=== PATIENT | female | born 1945 | race African-American/Black ===

== ENCOUNTER → 2017-02-05 | Outpatient (CLI) | payer MEDICARE, MEDICAID ==
[2017-02-05 12:07] LABS: ABSOLUTE EOSINOPHILS # (AUTO) 0.3 10^3/uL (0.0-0.6); ABSOLUTE MONOCYTES (AUTO) 0.7 10^3/uL (0.1-1.4); ABSOLUTE NEUT (AUTO) 3.9 10^3/uL (1.7-8.2); BASOPHILS % (AUTO) 0.5 % (0-2); EOSINOPHILS % (AUTO) 4.2 % (0-6); HEMATOCRIT 29.1 % (36.0-47.0); HEMOGLOBIN 9.7 g/dL (12.0-15.5); LYMPHOCYTES % (AUTO) 37.7 % (13-45); MEAN CORPUSCULAR HEMOGLOBIN 31.6 pg (27.0-33.4); MEAN CORPUSCULAR HGB CONC 33.4 g/dL (32.0-36.0); MEAN CORPUSCULAR VOLUME 95 fl (80-97); MONOCYTES % (AUTO) 8.8 % (3-13); RED BLOOD COUNT 3.08 10^6/uL (3.72-5.28); RED CELL DISTRIBUTION WIDTH 14.5 % (11.5-14.0); SEGMENTED NEUTROPHILS % (AUTO) 48.8 % (42-78)
== END ==
LOC: LAB 11:51
PROVIDERS: ATTEND Internal Medicine Nephrology
DX: D63.1 Anemia in chronic kidney disease (principal)
CPT/HCPCS: 36415; 85025

== ENCOUNTER 2017-05-21 06:03 | Day surgery (SDC) | payer MEDICARE, MEDICAID ==
[2017-05-16 10:21] LABS: HEMATOCRIT 31.1 % (36.0-47.0); HEMOGLOBIN 9.9 g/dL (12.0-15.5); HGB HCT DIFFERENCE -1.4; MEAN CORPUSCULAR HEMOGLOBIN 29.2 pg (27.0-33.4); MEAN CORPUSCULAR VOLUME 91 fl (80-97); RED CELL DISTRIBUTION WIDTH 15.2 % (11.5-14.0); WHITE BLOOD COUNT 5.8 10^3/uL (4.0-10.5)
[2017-05-16 10:44] LABS: BLOOD UREA NITROGEN 73 mg/dL (7-20); CALCIUM 10.6 mg/dL (8.4-10.2); CHLORIDE 114 mmol/L (98-107); CREATININE RESULT 4.21 mg/dL (0.52-1.25); GLUCOSE 177 mg/dL (75-110); SODIUM 141.9 mmol/L (137-145)
[2017-05-16 10:49] LABS: ANION GAP 19 (5-19)
[2017-05-16 11:09] LABS: POTASSIUM 6.2 mmol/L (3.6-5.0)
[2017-05-16 11:10] LABS: CARBON DIOXIDE 9 mmol/L (22-30)
--- NOTE | 2017-05-16 22:16 | EKG REPORT ---
SEVERITY:- ABNORMAL ECG - SINUS RHYTHM LVH WITH SECONDARY REPOLARIZATION ABNORMALITY REPOL ABNRM, PROBABLE ISCHEMIA, ANT-LAT LEADS : Confirmed by: Luc Tovar 16-May-2017 22:16:21
[~2017-05-21 06:03] MED LIST: LIDOCAINE 0.5% INJ-PF (5 MG/ML) 50 ML SDV SUBCUT PRN; NORMAL SALINE 1000 ML (RENAL PATIENTS) IV PRN
[2017-05-21] MEDS ORDERED: LIDOCAINE 1% INJ-PF (10 MG/ML) 30 ML SDV ONE (06:52)
[2017-05-21] MEDS ORDERED: HEPARIN SOD (PORCINE) 1,000 UNIT/ML 10 ML VIAL ONE (06:52)
[2017-05-21] MEDS ORDERED: LIDOCAINE 0.5% INJ-PF (5 MG/ML) 50 ML SDV ONE (06:53)
[2017-05-21] MEDS ORDERED: BUPIVACAINE HCL 0.25 % INJ/PF (2.5 MG/1 ML) 30 ML VIAL ONE (06:53)
[2017-05-21] MEDS ORDERED: BACITRACIN INJ 50,000 UNIT VIAL ONE (06:53)
[2017-05-21] MEDS ORDERED: ALBUTEROL SULFATE 0.083% NEB 2.5 MG/3 ML AMPUL NEB ONE (06:55)
[2017-05-21 07:04] LABS: POTASSIUM 3.6 mmol/L (3.6-5.0)
[2017-05-21] MEDS ORDERED: NITROGLYCERIN/D5W 0 MG/0 ML RTUINJ IV ONE (07:35)
[2017-05-21] MEDS ORDERED: MIDAZOLAM 2 MG/2 ML INJ ONE (07:43)
[2017-05-21] MEDS ORDERED: KETAMINE HCL INJ 500 MG/10 ML VIAL ONE (07:43)
[2017-05-21] MEDS ORDERED: PROPOFOL INJ 200 MG/20 ML VIAL IV ONE (07:44)
[2017-05-21 07:54] LABS: BLOOD UREA NITROGEN 33 mg/dL (7-20); CALCIUM 9.7 mg/dL (8.4-10.2); CARBON DIOXIDE 17 mmol/L (22-30); CHLORIDE 113 mmol/L (98-107); CREATININE RESULT 3.09 mg/dL (0.52-1.25); SODIUM 145.1 mmol/L (137-145)
[2017-05-21] MEDS ORDERED: CEFAZOLIN 1 GM/D5W RTU 1 GM/50 ML RTUPB IV ONE (07:58)
[2017-05-21] MEDS ORDERED: OXYCODONE-ACETAMINOPHEN 5-325 MG TABLET PO PRN ×3 (08:57→09:55)
[2017-05-21] MEDS ORDERED: MORPHINE SULFATE 10 MG/ML INJ IV PRN (08:57)
[2017-05-21] MEDS ORDERED: PROMETHAZINE HCL INJ 25 MG/1 ML VIAL IV PRN ×2 (08:57)
[2017-05-21] MEDS ORDERED: FENTANYL CITRATE INJ/PF 100 MCG/2 ML AMPUL IV PRN ×3 (08:57)
[2017-05-21] MEDS ORDERED: DIPHENHYDRAMINE HCL 50 MG/ML VIAL IV PRN (08:57)
[2017-05-21] MEDS ORDERED: MEPERIDINE HCL/PF INJ 25 MG/1 ML DISP.SYRIN IV PRN (08:57)
--- NOTE | 2017-05-21 09:56 | PDOC DISCHARGE SUMMARY ---
Discharge Summary (SDC) - Discharge Final Diagnosis: #1 end-stage renal disease. 2. Diabetes mellitus type 2. 3. History of stroke. 4. Coronary artery disease. 5. Carotid artery stenosis. 6. Hypertension. Date of Surgery: 05/21/17 Discharge Date: 05/21/17 Condition: Fair Treatment or Instructions: Discharge home [after recovery per ASU criteria]. Diet , [renal],as tolerated, when fully awake advance as tolerated. Activities within moderation encouraged. Follow up in my office by appointment in about [1 week]. Call for appointment. Leave wounds [covered], [keep clean and dry, until office visit in 1 week]. Hold of on school/work [until evaluation in office]. May shower [in 48 hrs], [try to keep operated area as dry as possible]. Prescriptions: Oxycodone HCl/Acetaminophen [Percocet 5-325 mg Tablet] 1 tab PO ASDIR PRN #15 tab PRN Reason: Discharge Diet: Other (Comments) - Renal diabetic Respiratory Treatments at Home: Deep Breathing/Coughing Discharge Activity: Activity As Tolerated Report the Following to Your Physician Immediately: Unusual Bleeding
--- NOTE | 2017-05-21 10:18 | Operative Report ---
Operative Report DATE OF SURGERY: 05/21/17 PREOPERATIVE DIAGNOSIS: #1 end-stage renal disease. 2. Diabetes mellitus type 2. 3. History of stroke. 4. Coronary artery disease. 5. Carotid artery stenosis. 6. Hypertension. POSTOPERATIVE DIAGNOSIS: #1 end-stage renal disease. Insertion of first stage left transposed brachial vein fistula. 2. Diabetes mellitus type 2. 3. History of stroke. 4. Coronary artery disease. 5. Carotid artery stenosis. 6. Hypertension. OPERATION: Insertion of first stage left brachial vein transposition fistula. SURGEON: JENNIFER LUTHER CASINO SURVEILLANCE OFFICER: PETER LEMONS ANESTHESIA: LMAC TISSUE REMOVED OR ALTERED: Not applicable. COMPLICATIONS: None ESTIMATED BLOOD LOSS: 5 mL. INTRAOPERATIVE FINDINGS: Very small basilic vein, small veins in general. Cephalic almost nonexistent. The brachial vein by far is the best and is up to 4.1 mm in diameter. It did except a 3.5 mm coronary dilator. The brachial artery is supple and only somewhat thick-walled. Easily 4 mm in diameter. The fistula functioning nicely with a good thrill and bruit. Appropriate Doppler signals in the afferent, efferent artery and fistula post procedure. PROCEDURE: Operative Report PROCEDURE: After reviewing the procedure with the patient, [she] was taken to the operating room. The patient was sedated and the [left upper extremity] prepared with chlorhexidine and draped out with sterile linen. After the "" universal timeout", in which it was verified that the patient [received IV antibiotics] the procedure commenced. The sterilely sheathed ultrasound probe was used to evaluate the left upper venous and arterial systems, pertinent to the previously done vein mapping. Local anesthesia was infiltrated and a longitudinal incision made over the lower arm near the antecubital fossa. Dissection proceeded through the subcutaneous tissues down to the brachial vessels. The vein was dissected out proximally and distally for about 4 cm. Likewise major branches. The brachial artery dissected out for a distance of about 1.5 cm. Rubber loops were placed on either end. The patient was given 2500 units of heparin intravenously. Coronary dilators were accepted [up to 4 mm]. The artery was controlled proximally and distally with rubber loops. An arteriotomy approximately [1.5 cm] in length was made, the artery was irrigated proximally and distally with heparinized solution. The transected vein was now spatulated , it was then anastomosed end to end to side into the brachial artery. This was done using a continuous suture of 6-0 Prolene. Controls of the fistula were now released and it was analyzed using a Doppler probe. Hemostasis was secured once optimal function was assuredtion and closed. Closure was done using interrupted 3-0 PDS for the subcutaneous tissues. The skin was closed using a continuous subcutaneous suture of 4-0 Monocryl which was reinforced with Steri-Strips over benzoin. The procedure was concluded by applying a dressing over the surgical site. DICTATING PHYSICIAN: JENNIFER JIMENEZ M.D.
[2017-05-21 13:02] VITALS: BP 180/77
== END 2017-05-21 11:35 | disposition home or self-care (01) ==
LOC: OROUT 06:03
PROVIDERS: ATTEND Surgery
PROC: 05SC0ZZ Reposition Left Basilic Vein, Open Approach (ICD-10-PCS; principal; 2017-05-21 08:00)
DX: I13.2 Hypertensive heart and chronic kidney disease with heart failure and with stage 5 chronic kidney disease, or end stage renal disease (principal); I50.9 Heart failure, unspecified; N18.6 End stage renal disease; E11.22 Type 2 diabetes mellitus with diabetic chronic kidney disease; I25.10 Atherosclerotic heart disease of native coronary artery without angina pectoris; E78.00 Pure hypercholesterolemia, unspecified; I65.29 Occlusion and stenosis of unspecified carotid artery; D64.9 Anemia, unspecified; E11.40 Type 2 diabetes mellitus with diabetic neuropathy, unspecified; G47.30 Sleep apnea, unspecified; F17.210 Nicotine dependence, cigarettes, uncomplicated; K21.9 Gastro-esophageal reflux disease without esophagitis; G47.33 Obstructive sleep apnea (adult) (pediatric); Z79.4 Long term (current) use of insulin; Z79.82 Long term (current) use of aspirin; Z79.899 Other long term (current) drug therapy; I69.851 Hemiplegia and hemiparesis following other cerebrovascular disease affecting right dominant side; Z87.01 Personal history of pneumonia (recurrent)
CPT/HCPCS: 93005; 36415 ×2; 82962; 84520; 82310; 82435; 82374; 82565; 82947; 84132; 84295; 85027; 80048; 93010; 94640; 36819; J2250; J3490 ×4; J0690; J1644; J2704; A9270; 1844

== ENCOUNTER 2017-06-25 09:15 | Day surgery (SDC) | payer MEDICARE, MEDICAID ==
[2017-06-25] MEDS ORDERED: LIDOCAINE 0.5% INJ-PF (5 MG/ML) 50 ML SDV ONE (09:51)
[2017-06-25] MEDS ORDERED: MIDAZOLAM 2 MG/2 ML INJ ONE (09:51)
[2017-06-25] MEDS ORDERED: FENTANYL CITRATE INJ/PF 100 MCG/2 ML AMPUL ONE (09:51)
[2017-06-25] MEDS ORDERED: BACITRACIN INJ 50,000 UNIT VIAL ONE (09:51)
[2017-06-25 10:01] LABS: HEMATOCRIT 27.4 % (36.0-47.0); HEMOGLOBIN 9.1 g/dL (12.0-15.5); HGB HCT DIFFERENCE -0.1; MEAN CORPUSCULAR HGB CONC 33.3 g/dL (32.0-36.0); MEAN CORPUSCULAR VOLUME 93 fl (80-97); RED BLOOD COUNT 2.94 10^6/uL (3.72-5.28); RED CELL DISTRIBUTION WIDTH 16.6 % (11.5-14.0); WHITE BLOOD COUNT 8.2 10^3/uL (4.0-10.5)
[2017-06-25] MEDS ORDERED: OXYCODONE-ACETAMINOPHEN 5-325 MG TABLET ONE (10:04)
[2017-06-25] MEDS ORDERED: DIAZEPAM 5 MG TABLET ONE (10:05)
[2017-06-25 10:22] LABS: BLOOD UREA NITROGEN 79 mg/dL (7-20); CALCIUM 9.8 mg/dL (8.4-10.2); CHLORIDE 110 mmol/L (98-107); CREATININE RESULT 5.89 mg/dL (0.52-1.25); GLUCOSE 175 mg/dL (75-110); POTASSIUM 5.2 mmol/L (3.6-5.0)
[2017-06-25 10:32] LABS: CARBON DIOXIDE 13 mmol/L (22-30); SODIUM 142.5 mmol/L (137-145)
[2017-06-25 10:33] LABS: ANION GAP 20 (5-19)
[2017-06-25] MEDS ORDERED: CEFAZOLIN 1 GM/D5W RTU 1 GM/50 ML RTUPB IV ONE (10:57)
--- NOTE | 2017-06-25 11:49 | PDOC DISCHARGE SUMMARY ---
Discharge Summary (SDC) - Discharge Final Diagnosis: ESRD on hemodialysis Date of Surgery: 06/25/17 Discharge Date: 06/25/17 Condition: Good Treatment or Instructions: Discharge home [after recovery per ASU criteria]. Diet , [renal],as tolerated, when fully awake advance as tolerated. Activities within moderation encouraged. Follow up in my office by appointment in about [1 week]. Call for appointment. Leave wounds [covered], [keep clean and dry, until hemodialysis]. Hold of on school/work [until evaluation in office]. Medications per med. May shower [in 48 hrs], [try to keep operated area as dry as possible]. Discharge Diet: Other (Comments) - Renal Respiratory Treatments at Home: Deep Breathing/Coughing Discharge Activity: Activity As Tolerated, Other - Do not lie flat for 48 hours he just elevated semi-seated position.
--- NOTE | 2017-06-25 11:53 | Operative Report ---
Operative Report DATE OF SURGERY: 06/25/17 PREOPERATIVE DIAGNOSIS: ESRD on hemodialysis POSTOPERATIVE DIAGNOSIS: ESRD on hemodialysis OPERATION: 1. Ultrasound evaluation right internal jugular vein. 2. PermCath insertion via real-time ultrasound access in the right internal jugular vein. 3. Angiogram interpretation. SURGEON: JENNIFER LUTHER A OPERATOR: None ANESTHESIA: Moderate Sedation TISSUE REMOVED OR ALTERED: Not applicable. COMPLICATIONS: None ESTIMATED BLOOD LOSS: 2 mL. INTRAOPERATIVE FINDINGS: Of a satisfactory right internal jugular vein, estimated to be 1.21 m in diameter. Adequate support of PermCath catheter. Easy egress of blood and ingress of heparinized solution through both ports. Satisfactory flow of contrast through the cath and into the right atrium. The tip of the catheter in the upper third of the atrial pool. PROCEDURE: After obtaining informed consent, the patient was taken to the operating room and positioned supine. The [right neck] and chest were prepared with chlorhexidine and draped out with sterile linen. After the " universal timeout ", in which it was verified that the patient continued to receive antibiotic, the procedure commenced. A steriley sheathed ultrasound probe was used to evaluate the [right internal jugular] vein. Local anesthesia was infiltrated adjacent to the probe. Access into the [right internal jugular] vein was obtained using a micropuncture needle, followed by micropuncture wire and then a micropuncture catheter. This was followed by introduction of a 0.035 guidewire the tip of which was placed down into the inferior vena cava . A 23 cm long perm catheter] was now positioned over the chest and an exit site marked and locally anesthetized ,the catheter was placed between the 2 incisions. Proximally, the catheter was now positioned using a peel-away sheath, after dilation. Easy ingress of heparinized solution and egress of blood obtained through both ports. A completion angiogram was done by injecting contrast. The findings were as dictated. The neck incision was now closed using interrupted 3-0 PDS to the subcutaneous tissues, the catheter was anchored at the exit site using 3-0 PDS. A Biopatch device was now placed adjacent to the catheter. Dressings were applied and the procedure concluded. Exposure time: [1.1 minutes]. Exposure: 4.54 mcg per centimeters squared. Contrast amount: [5 mL] of [id number] low osmolality. Copies of the dictated operative report for Dr. Jennifer Douglas MD.concluded. Copies of the dictated operative report for Dr. Jennifer Douglas MD.
[2017-06-25 14:51] VITALS: BP 145/56
--- NOTE | 2017-06-25 16:43 | RADIOLOGY REPORT (SQ) ---
EXAM DESCRIPTION: TUNNELED CENTRAL LINE; GUIDANCE ULTRASOUND; GUIDANCE FLUOROSCOPIC COMPLETED DATE/TIME: 06/25/2017 3:14 pm REASON FOR STUDY: N18.6 N18.6 END STAGE RENAL DISEASE COMPARISON: None. FLUOROSCOPY TIME: 1.1 minute. 4 images saved to PACS. TECHNIQUE: Intra-operative images acquired during surgical procedure to evaluate progress. NUMBER OF IMAGES: 4 images. LIMITATIONS: None. FINDINGS: Images of the chest acquired during catheter placement. IMPRESSION: IMAGE(S) OBTAINED DURING PROCEDURE. COMMENT: Quality ID 145: Final reports for procedures using fluoroscopy that document radiation exp osure indices, or exposure time and number of fluorographic images (if radiation exposure indices are not available) Please consult full operative report of the attending physician for description of the procedure. TECHNICAL DOCUMENTATION: JOB ID: [id number] [employer]- All Rights Reserved
--- NOTE | 2017-06-25 16:43 | RADIOLOGY REPORT (SQ) ---
EXAM DESCRIPTION: TUNNELED CENTRAL LINE; GUIDANCE ULTRASOUND; GUIDANCE FLUOROSCOPIC COMPLETED DATE/TIME: 06/25/2017 3:14 pm REASON FOR STUDY: N18.6 N18.6 END STAGE RENAL DISEASE COMPARISON: None. FLUOROSCOPY TIME: 1.1 minute. 4 images saved to PACS. TECHNIQUE: Intra-operative images acquired during surgical procedure to evaluate progress. NUMBER OF IMAGES: 4 images. LIMITATIONS: None. FINDINGS: Images of the chest acquired during catheter placement. IMPRESSION: IMAGE(S) OBTAINED DURING PROCEDURE. COMMENT: Quality ID 145: Final reports for procedures using fluoroscopy that document radiation exp osure indices, or exposure time and number of fluorographic images (if radiation exposure indices are not available) Please consult full operative report of the attending physician for description of the procedure. TECHNICAL DOCUMENTATION: JOB ID: [id number] [employer]- All Rights Reserved
--- NOTE | 2017-06-25 16:43 | RADIOLOGY REPORT (SQ) ---
EXAM DESCRIPTION: TUNNELED CENTRAL LINE; GUIDANCE ULTRASOUND; GUIDANCE FLUOROSCOPIC COMPLETED DATE/TIME: 06/25/2017 3:14 pm REASON FOR STUDY: N18.6 N18.6 END STAGE RENAL DISEASE COMPARISON: None. FLUOROSCOPY TIME: 1.1 minute. 4 images saved to PACS. TECHNIQUE: Intra-operative images acquired during surgical procedure to evaluate progress. NUMBER OF IMAGES: 4 images. LIMITATIONS: None. FINDINGS: Images of the chest acquired during catheter placement. IMPRESSION: IMAGE(S) OBTAINED DURING PROCEDURE. COMMENT: Quality ID 145: Final reports for procedures using fluoroscopy that document radiation exp osure indices, or exposure time and number of fluorographic images (if radiation exposure indices are not available) Please consult full operative report of the attending physician for description of the procedure. TECHNICAL DOCUMENTATION: JOB ID: [id number] [employer]- All Rights Reserved
== END 2017-06-25 13:03 | disposition home or self-care (01) ==
LOC: SC 09:15
PROVIDERS: ATTEND Surgery
PROC: 05HM33Z Insertion of Infusion Device into Right Internal Jugular Vein, Percutaneous Approach (ICD-10-PCS; principal; 2017-06-25)
DX: G47.30 Sleep apnea, unspecified (principal); I13.2 Hypertensive heart and chronic kidney disease with heart failure and with stage 5 chronic kidney disease, or end stage renal disease; I50.9 Heart failure, unspecified; N18.6 End stage renal disease; G62.9 Polyneuropathy, unspecified; E08.22 Diabetes mellitus due to underlying condition with diabetic chronic kidney disease; Z99.2 Dependence on renal dialysis; Z87.891 Personal history of nicotine dependence; M19.90 Unspecified osteoarthritis, unspecified site; F41.9 Anxiety disorder, unspecified; K21.9 Gastro-esophageal reflux disease without esophagitis; D64.9 Anemia, unspecified; I25.10 Atherosclerotic heart disease of native coronary artery without angina pectoris; E78.00 Pure hypercholesterolemia, unspecified; Z86.73 Personal history of transient ischemic attack (TIA), and cerebral infarction without residual deficits; Z79.4 Long term (current) use of insulin; Z79.82 Long term (current) use of aspirin; Z79.899 Other long term (current) drug therapy
CPT/HCPCS: 36415; 85027; 80048; 36558; 76937; 77001; C1752 ×2; Q9967; J2250; J3490 ×2; J0690; A9270 ×2; J3010; J1644

== ENCOUNTER 2017-07-09 05:34 | Day surgery (SDC) | payer MEDICARE, MEDICAID ==
[~2017-07-09 05:34] MED LIST changes: +CEFAZOLIN 1 GM/D5W RTU 1 GM/50 ML RTUPB IV PRN; -LIDOCAINE 0.5% INJ-PF (5 MG/ML) 50 ML SDV SUBCUT PRN; -NORMAL SALINE 1000 ML (RENAL PATIENTS) IV PRN
[2017-07-09] MEDS ORDERED: HEPARIN SODIUM,PORCINE/NS/PF 0 UNIT/0 ML RTUINJ IV ONE (06:32)
[2017-07-09] MEDS ORDERED: BUPIVACAINE HCL 0.25 % INJ/PF (2.5 MG/1 ML) 30 ML VIAL ONE (06:32)
[2017-07-09] MEDS ORDERED: LIDOCAINE 0.5% INJ-PF (5 MG/ML) 50 ML SDV ONE (06:32)
[2017-07-09] MEDS ORDERED: BACITRACIN INJ 50,000 UNIT VIAL ONE (06:33)
[2017-07-09] MEDS ORDERED: LIDOCAINE 1% INJ-PF (10 MG/ML) 30 ML SDV ONE (06:34)
[2017-07-09] MEDS ORDERED: HEPARIN SOD (PORCINE) 1,000 UNIT/ML 10 ML VIAL ONE (06:34)
[2017-07-09] MEDS ORDERED: MIDAZOLAM 2 MG/2 ML INJ ONE (06:44)
[2017-07-09] MEDS ORDERED: FENTANYL CITRATE INJ/PF 100 MCG/2 ML AMPUL ONE ×2 (06:44→10:55)
[2017-07-09] MEDS ORDERED: EPHEDRINE SULFATE INJ 50 MG/1 ML AMPULE ONE (06:45)
[2017-07-09] MEDS ORDERED: PROPOFOL INJ 200 MG/20 ML VIAL IV ONE (06:45)
[2017-07-09] MEDS ORDERED: KETAMINE HCL INJ 500 MG/10 ML VIAL ONE (06:46)
[2017-07-09 07:05] LABS: HEMATOCRIT 25.2 % (36.0-47.0); HEMOGLOBIN 8.2 g/dL (12.0-15.5); HGB HCT DIFFERENCE -0.6; MEAN CORPUSCULAR HEMOGLOBIN 30.7 pg (27.0-33.4); MEAN CORPUSCULAR HGB CONC 32.5 g/dL (32.0-36.0); MEAN CORPUSCULAR VOLUME 94 fl (80-97); RED BLOOD COUNT 2.67 10^6/uL (3.72-5.28); RED CELL DISTRIBUTION WIDTH 17.9 % (11.5-14.0); WHITE BLOOD COUNT 7.6 10^3/uL (4.0-10.5)
[2017-07-09 07:36] LABS: ANION GAP 13 (5-19); BLOOD UREA NITROGEN 19 mg/dL (7-20); CALCIUM 9.3 mg/dL (8.4-10.2); CARBON DIOXIDE 29 mmol/L (22-30); CHLORIDE 97 mmol/L (98-107); CREATININE RESULT 3.11 mg/dL (0.52-1.25); GLUCOSE 196 mg/dL (75-110); POTASSIUM 3.5 mmol/L (3.6-5.0); SODIUM 138.7 mmol/L (137-145)
--- NOTE | 2017-07-09 08:31 | EKG REPORT ---
SEVERITY:- ABNORMAL ECG - SINUS RHYTHM PROBABLE LEFT ATRIAL ABNORMALITY LVH WITH SECONDARY REPOLARIZATION ABNORMALITY ANTERIOR Q WAVES, POSSIBLY DUE TO LVH BORDERLINE PROLONGED QT INTERVAL : Confirmed by: Luc Tovar 09-Jul-2017 08:30:50
[2017-07-09] MEDS ORDERED: FENTANYL CITRATE INJ/PF 100 MCG/2 ML AMPUL IV PRN ×3 (08:43→10:40)
--- NOTE | 2017-07-09 10:41 | PDOC DISCHARGE SUMMARY ---
Discharge Summary (SDC) - Discharge Final Diagnosis: #[address] 2. End-stage renal disease on hemodialysis. 3. Diabetes mellitus type 2. 4. History of stroke. 5. Hypertension. Date of Surgery: 07/09/17 Discharge Date: 07/09/17 Condition: Good Treatment or Instructions: Discharge patient after meeting ASU criteria. Resume meds per medication reconciliation form and prescription for Percocet. Follow-up in office by appointment in about 1 week. Drain to be managed as per protocol, removed on office visit. The patient may shower starting in 48 hours. The fresh surgical site to be kept clean and dry as much as possible. Referrals: YOLIE KOROMA MD [Primary Care Provider] - Discharge Diet: Tube Feeding (Comments), Other (Comments) - Renal Respiratory Treatments at Home: Deep Breathing/Coughing Discharge Activity: Activity As Tolerated Report the Following to Your Physician Immediately: Shortness of Breath, Unusual Bleeding
--- NOTE | 2017-07-09 10:53 | Operative Report ---
Operative Report DATE OF SURGERY: 07/09/17 PREOPERATIVE DIAGNOSIS: 1. PermCath in place. 2. End-stage renal disease on hemodialysis. 3. History of stroke. 4. Diabetes mellitus type 2. 5. Hypertension. POSTOPERATIVE DIAGNOSIS: 1. PermCath in place. Post second stage left brachial vein transposition. 2. End-stage renal disease on hemodialysis. 3. History of stroke. 4. Diabetes mellitus type 2. 5. Hypertension. OPERATION: Insertion of second stage brachial vein transposition, left arm. SURGEON: JENNIFER LUTHER LOAN INSPECTOR: PETER STOVER ANESTHESIA: LMAC TISSUE REMOVED OR ALTERED: Not applicable. COMPLICATIONS: None ESTIMATED BLOOD LOSS: 50 mL. INTRAOPERATIVE FINDINGS: Of a relatively small brachial vein fistula otherwise with adequate bruit. Estimated to be about 5 mm. Need for secondary dilatation may exist. The vein had an unusual amount of branches and reentry points which were dealt with individually. These caused the procedure to be somewhat longer than usual. An approximately 15 cm segment should be available for dialysis eventually. A number of small superficial nerves were noted and mostly preserved. PROCEDURE: Operative Report PROCEDURE: After reviewing the procedure with the patient, and her family, she was taken to the operating room. The patient was sedated and the her prepared with chlorhexidine and draped out with sterile linen. After the "" universal timeout", in which it was verified that the patient [received IV antibiotics] the procedure commenced. The sterilely sheathed ultrasound probe was used to evaluate the size and topographic location of the existing brachial brachial vein fistula. This was transcribed topographical using a marking pen. Local anesthesia was infiltrated and a longitudinal incision started just above the elbow and dissection proceeded down to the fistula. Sequential infiltration of local anesthesia, incision and dissection of the vein proceeded up to the axillary fold. The basilic vein was now dissected away from its branches which were either clipped and/or ligated and divided. In this way the brachial vein was freed up for its entire visible length. Its length was now measured with a dry umbilical tape which was used to transpose a tunnel onto the skin anteriorly and laterally. With this marked in ink, local anesthesia was infiltrated in the skin and subcutaneous tissue of the tunnel. A Cannon tunneler was now used to dissect a tunnel in the immediate subcutaneous plane in the area of fistula transposition. Several 3-0 PDS sutures were now placed in the subcutaneous tissues and placed on clamps. These were used for traction laterally. The subcutaneous tissues were now divided down to the tunneler. Just beneath the skin and superficial to the fascia. The tunneler was now removed. The vein was now placed within the tunnel which was reconstituted with interrupted sutures of 3-0 PDS. Great care was taken to avoid compressing the fistula. A 15 [place] drain was now inserted through an inferiorly placed incision after obtaining local anesthesia. The drain was tailored to the lower one third of the wound. It was kept away from the vein, the wound was now closed using interrupted 3-0 PDS in the subcutaneous tissues. The skin was closed with a continuous subcutaneous suture of 4-0 Monocryl. Steri-Strips were applied over benzoin and then Telfa and then a Kerlix wrap. The procedure was concluded. Copies dictated operative report to Dr. Jennifer Douglas MD . DICTATING PHYSICIAN: JENNIFER DOUGLAS M.D.
[2017-07-09] MEDS ORDERED: OXYCODONE-ACETAMINOPHEN 5-325 MG TABLET ONE (11:36)
[2017-07-09] MEDS ORDERED: LIDOCAINE 2% INJ-PF (20 MG/ML) 10 ML AMPUL ONE (12:22)
[2017-07-09] MEDS ORDERED: ONDANSETRON HCL INJ/PF 4 MG/2 ML SDV ONE (12:22)
[2017-07-09 13:51] VITALS: BP 131/54
== END 2017-07-09 12:25 | disposition home or self-care (01) ==
LOC: OROUT 05:34
PROVIDERS: ATTEND Surgery
PROC: 05SA0ZZ Reposition Left Brachial Vein, Open Approach (ICD-10-PCS; principal; 2017-07-09 07:30)
DX: N18.6 End stage renal disease (principal); Z99.2 Dependence on renal dialysis; Z79.899 Other long term (current) drug therapy; Z79.4 Long term (current) use of insulin; Z79.82 Long term (current) use of aspirin; M19.90 Unspecified osteoarthritis, unspecified site; F41.9 Anxiety disorder, unspecified; G47.30 Sleep apnea, unspecified; D64.9 Anemia, unspecified; I65.29 Occlusion and stenosis of unspecified carotid artery; I25.10 Atherosclerotic heart disease of native coronary artery without angina pectoris; Z86.73 Personal history of transient ischemic attack (TIA), and cerebral infarction without residual deficits; E11.40 Type 2 diabetes mellitus with diabetic neuropathy, unspecified; E78.00 Pure hypercholesterolemia, unspecified; Z87.891 Personal history of nicotine dependence; I13.2 Hypertensive heart and chronic kidney disease with heart failure and with stage 5 chronic kidney disease, or end stage renal disease; I50.9 Heart failure, unspecified; E11.22 Type 2 diabetes mellitus with diabetic chronic kidney disease; J45.909 Unspecified asthma, uncomplicated; R01.1 Cardiac murmur, unspecified
CPT/HCPCS: 36415; 82962; 85027; 80048; 93005; 93010; 36821; J2250; J3490 ×5; J0690; J3010; J1644; A9270; J2405; J2704; 1844

== ENCOUNTER 2017-09-16 07:46 | Day surgery (SDC) | payer MEDICARE, MEDICAID ==
[~2017-09-16 07:46] MED LIST changes: -CEFAZOLIN 1 GM/D5W RTU 1 GM/50 ML RTUPB IV PRN; +FENTANYL CITRATE INJ/PF 100 MCG/2 ML AMPUL ONE; +HEPARIN SOD (PORCINE) 5,000 UNIT/ML 1 ML SYRINGE ONE; +LIDOCAINE 0.5% INJ-PF (5 MG/ML) 50 ML SDV ONE; +MIDAZOLAM 2 MG/2 ML INJ ONE
[2017-09-16 08:03] LABS: HEMATOCRIT 42.6 % (36.0-47.0); HGB HCT DIFFERENCE -0.6; MEAN CORPUSCULAR HEMOGLOBIN 29.8 pg (27.0-33.4); MEAN CORPUSCULAR HGB CONC 32.9 g/dL (32.0-36.0); MEAN CORPUSCULAR VOLUME 91 fl (80-97); RED BLOOD COUNT 4.71 10^6/uL (3.72-5.28); RED CELL DISTRIBUTION WIDTH 16.5 % (11.5-14.0); WHITE BLOOD COUNT 7.1 10^3/uL (4.0-10.5)
[2017-09-16] MEDS ORDERED: OXYCODONE-ACETAMINOPHEN 5-325 MG TABLET ONE ×2 (08:20→10:25)
[2017-09-16] MEDS ORDERED: DIAZEPAM 5 MG TABLET ONE (08:20)
[2017-09-16 08:29] LABS: ANION GAP 17 (5-19); BLOOD UREA NITROGEN 47 mg/dL (7-20); CALCIUM 9.9 mg/dL (8.4-10.2); CARBON DIOXIDE 22 mmol/L (22-30); CHLORIDE 106 mmol/L (98-107); CREATININE RESULT 4.07 mg/dL (0.52-1.25); GLUCOSE 326 mg/dL (75-110); POTASSIUM 3.9 mmol/L (3.6-5.0); SODIUM 145.3 mmol/L (137-145)
--- NOTE | 2017-09-16 08:40 | PDOC H&P ---
General Chief Complaint: The patient is being dialyzed with a right-sided permacatheter. She has a small second stage fistula. This requires maturation. - Diagnosis (3) Diabetes mellitus type 2 in nonobese Is this a Current Diagnosis?: Yes (5) History of stroke Is this a Current Diagnosis?: Yes (6) Hypertension Is this a Current Diagnosis?: Yes - Current Medications/Allergies Home Medications: Amlodipine Besylate 10 mg PO DAILY 05/21/17 Benazepril HCl [Lotensin] 40 mg PO DAILY 05/21/17 Betamet Diprop/Prop Gly [Betamethasone Dp Aug 0.05% Cream] 1 gm TOP PRN PRN Furosemide 60 mg PO QAM 05/21/17 Gabapentin 300 mg PO QHS 05/21/17 Insulin Glargine,Hum.rec.anlog [Lantus] 30 unit SUBCUT QAM 05/21/17 Insulin Lispro [Humalog] 100 unit SUBCUT ASDIR 05/21/17 Nitroglycerin [Nitrostat] 1 tab SL PRN PRN 05/21/17 Travoprost (Benzalkonium) [Travatan 0.004% Eye Drop] 1 drop OU QHS 05/21/17 Varenicline Tartrate [Chantix] 1 mg PO BID 05/21/17 Amlodipine Besylate [Norvasc 10 mg Tablet] 10 mg PO BID 09/13/17 Aspirin [Ecotrin 81 mg EC Tablet] 81 mg PO QAM 09/13/17 Carisoprodol 350 mg PO PRN PRN 09/13/17 Carvedilol [Coreg] 1 tab PO Q12 09/13/17 Cyanocobalamin (Vitamin B-12) [Vitamin B-12 1000 Mcg Tablet] 1 tab PO DAILY Latanoprost [Xalatan] 1 drop OP QHS 09/13/17 Pantoprazole Sodium [Protonix] 20 mg PO BID 09/13/17 Paricalcitol [Zemplar 1 Mcg Capsule] 1 mcg PO ASDIR PRN 09/13/17 Allergies/Adverse Reactions: No Known Allergies Allergy (Verified 09/13/17 15:07) Past Medical History Cardiac Medical History: Reports: Hypertension Denies: Coronary Artery Disease, Myocardial Infarction Pulmonary Medical History: Reports: Pneumonia - 2016 Denies: Asthma, Bronchitis, Chronic Obstructive Pulmonary Disease (COPD) Neurological Medical History: Denies: Seizures Musculoskeltal Medical History: Reports: Arthritis - GENERALIZED Hematology: Reports: Anemia Family History Parental Family History Reviewed: No Children Family History Reviewed: No Sibling(s) Family History Reviewed.: No Social History Smoking Status: Former Smoker Physical Exam Vital Signs: Temp Pulse Resp BP Pulse Ox 97.7 F 88 20 193/69 H 98 09/16/17 08:16 09/16/17 08:16 09/16/17 08:16 09/16/17 08:16 09/16/17 08:16 Intake & Output 09/15/17 09/16/17 09/17/17 06:59 06:59 06:59 Weight 55.338 kg Additional comments: Constitutional: Well-developed well-nourished -[place] lady. No apparent acute distress. Eyes: Mucous membranes pink and moist, pupils equal and reactive to light. Conjunctiva normal. Cornea normal. Wears spectacles. ENT: Hearing grossly normal. External pinna normal to inspection. Teeth intact. Tongue normal to inspection. Chest: Normal to inspection. Respiratory breath sounds are present bilaterally, normal. Normal respiratory effort. Skin: Normal to inspection. No ulcers, normal turgor. Psychiatric: Judgment, memory, insight seem normal. Mood is pleasant and appropriate. Extremities: Upper extremities show normal range of movement. Pulses present noted to the radial arteries. Capillary refill normal. No cyanosis noted. No muscle wasting noted.Left sided second stage transposed basilic fistula noted. On the small side with proximal hyper pulsatility. Impression/Plan Plan: The atient is familiar [facility] the goals of fistula maturation, getting rid of catheter. She wishes to proceed.
--- NOTE | 2017-09-16 09:53 | PDOC DISCHARGE SUMMARY ---
Discharge Summary (SDC) - Discharge Final Diagnosis: 1. Immature arteriovenous fistula left arm. 2. PermCath in place. 3. End-stage renal disease on hemodialysis. 4. Diabetes mellitus type 2. 5. Hypertension. Date of Surgery: 09/16/17 Discharge Date: 09/16/17 Condition: Good Treatment or Instructions: Discharge home [after recovery per ASU criteria]. Diet , [renal],as tolerated, when fully awake advance as tolerated. Activities within moderation encouraged. Follow up in my office by appointment in about [1 week]. Call for appointment. Leave wounds [covered], [keep clean and dry, until office visit in 1 week]. Hold of on school/work [until evaluation in office]. Meds per med rec. May shower [in 48 hrs], [try to keep operated area as dry as possible]. Referrals: YOLIE KOROMA MD [Primary Care Provider] - Discharge Diet: Other (Comments) - Renal, diabetic Respiratory Treatments at Home: Deep Breathing/Coughing Discharge Activity: Activity As Tolerated Report the Following to Your Physician Immediately: Shortness of Breath, Unusual Bleeding
--- NOTE | 2017-09-16 09:57 | Operative Report ---
Operative Report DATE OF SURGERY: 09/16/17 PREOPERATIVE DIAGNOSIS: 1. Immature arteriovenous fistula left arm. 2. PermCath in place. 3. End-stage renal disease on hemodialysis. 4. Diabetes mellitus type 2. 5. Hypertension. POSTOPERATIVE DIAGNOSIS: 1. Immature arteriovenous fistula left arm. Post angioplasty. 2. PermCath in place. 3. End-stage renal disease on hemodialysis. 4. Diabetes mellitus type 2. 5. Hypertension. OPERATION: 1. Ultrasound evaluation. 2. Needle access into fistula. 3. Angioplasty. 4. Angiogram and interpretation. SURGEON: JENNIFER LUTHER HEAT TREATER HEAD: None ANESTHESIA: Moderate Sedation TISSUE REMOVED OR ALTERED: Not applicable. COMPLICATIONS: Extravasation with subcutaneous hematoma. ESTIMATED BLOOD LOSS: 5 mL. INTRAOPERATIVE FINDINGS: Of a well founded arteriovenous fistula, left arm, transposed basilic. Quite small measuring about 3.6 in the midportion. Hyper pulsatile flow in the proximal 3 cm. Hyper pulsatility reduced at the end of the procedure and prescription flow through the enlarged fistula appreciated on final angiogram. The patient did have a substantial hematoma from extravasation about 6 cm away from the anastomosis. PROCEDURE: PROCEDURE: After verifying the procedure and having obtained informed consent, the patient's left arm was prepared with Chlorhexidine and draped out with sterile linen. Local anesthesia infiltrated. Percutaneous access into the fistula ,[ antegrade], obtained about [4 cm] from the arteriovenous anastomosis using a micro puncture needle followed by micro puncture wire and then a micro puncture catheter. Angiogram demonstrated the aforementioned findings. Angioplasty was elected. A 0.035 [place] wire was inserted, and over this, a 5 Hungarian short introducer was placed, this was followed by a [6-mm ] angioplasty balloon . Angioplasty was serially done from the upper fistula down to the introducer. Inflating up to 20 atmospheres for a minute at a time.]. Completion angiogram demonstrated improvement. The presence of extravasation and hematoma was noted. This was treated with local pressure and ice pack. The procedure was stopped. The instrumentation was now withdrawn over pressure for 15 minutes.. Dressings applied, procedure concluded. Exposure time: 2.8 minutes Radiation: 2.48 mg/cm. Contrast: 25 mL of Isovue-300, low osmolality. DICTATING PHYSICIAN: JENNIFER JIMENEZ M.D. cc: JENNIFER JIMENEZ M.D. ([id number]) >>
[2017-09-16 13:24] VITALS: BP 154/65
--- NOTE | 2017-09-16 16:11 | RADIOLOGY REPORT (SQ) ---
EXAM DESCRIPTION: FISTULAGRAM W/PLASTY COMPLETED DATE/TIME: 09/16/2017 1:08 pm REASON FOR STUDY: T82.898A T82.898A OTH COMPLICATION OF VASCULAR PROSTH DEV/GRFT, INIT N18.6 END S TAGE RENAL DISEASE E11.9 TYPE 2 DIABETES MELLITUS WITHOUT COMPLICATIONS COMPARISON: 06/25/2017 FLUOROSCOPY TIME: 2.8 minutes Multiple cine fluoro images saved to PACS. TECHNIQUE: Intra-operative images acquired during surgical procedure to evaluate progress. NUMBER OF IMAGES: Cine fluoroscopic images. LIMITATIONS: None. FINDINGS: Imaging and fluoro for Dr. Douglas during upper extremity dialysis graft evaluation and t reatment IMPRESSION: Intra procedural imaging and fluoro COMMENT: Quality ID [id number]: Final reports for procedures using fluoroscopy that document radiation exp osure indices, or exposure time and number of fluorographic images (if radiation exposure indices are not available) Please consult full operative report of the attending physician for description of the procedure. TECHNICAL DOCUMENTATION: JOB ID: [id number] [employer]- All Rights Reserved
== END 2017-09-16 12:55 | disposition home or self-care (01) ==
LOC: SC 07:46
PROVIDERS: ATTEND Surgery
PROC: 057C3DZ Dilation of Left Basilic Vein with Intraluminal Device, Percutaneous Approach (ICD-10-PCS; principal; 2017-09-16)
DX: T82.898A Other specified complication of vascular prosthetic devices, implants and grafts, initial encounter (principal); Y83.2 Surgical operation with anastomosis, bypass or graft as the cause of abnormal reaction of the patient, or of later complication, without mention of misadventure at the time of the procedure; E11.22 Type 2 diabetes mellitus with diabetic chronic kidney disease; I12.0 Hypertensive chronic kidney disease with stage 5 chronic kidney disease or end stage renal disease; D63.1 Anemia in chronic kidney disease; N18.6 End stage renal disease; Z99.2 Dependence on renal dialysis; M15.9 Polyosteoarthritis, unspecified; Z79.899 Other long term (current) drug therapy; Z79.4 Long term (current) use of insulin; Z79.82 Long term (current) use of aspirin; Z87.891 Personal history of nicotine dependence
CPT/HCPCS: 36415; 85027; 80048; 36902; 76937; C1725; Q9967; C1769; J1644 ×2; A9270 ×2; J3010; J3490; J2250